=== PATIENT | male | born 1955 | race Caucasian/White ===

== ENCOUNTER 2017-04-15 08:00 | Outpatient (CLI) | payer MEDICAID | END 2017-04-15 23:59 | disposition home or self-care (01) | LOC: D.MRI 08:00 | DX: M54.16 Radiculopathy, lumbar region (principal) ==

== ENCOUNTER → 2017-08-09 09:13 | Outpatient (CLI) | payer MEDICAID | END | disposition home or self-care (01) | LOC: D.US 09:00 | DX: R22.2 Localized swelling, mass and lump, trunk (principal) ==

== ENCOUNTER → 2017-08-20 08:44 | Day surgery (SDC) | payer BC ==
[~2017-08-20 08:44] MED LIST: HYDROCODONE-APA1 TAB PO; OMEPRAZOLE CAP 20M; OXYCONTIN40 MG PO; SYNTHROID25 MCG PO
== END | disposition home or self-care (01) ==
LOC: D.OPS 08:00 → D.PAN 10:30
DX: R59.9 Enlarged lymph nodes, unspecified (principal); F17.200 Nicotine dependence, unspecified, uncomplicated; Z53.9 Procedure and treatment not carried out, unspecified reason

== ENCOUNTER 2017-08-26 06:23 | Day surgery (SDC) | payer BC ==
[~2017-08-26] VITALS: Ht 160 cm; Wt 73.0 kg
--- NOTE | ~2017-08-26 | HP ---
PATIENT: ARVIND PACE MEDICAL RECORD: [id number] ACCOUNT: [id number] [facility]ATION:[facility] : 51 ADMISSION DATE: 08/26/17 HISTORY AND PHYSICAL EXAMINATION HISTORY OF PRESENT ILLNESS: He presents with lymphadenopathy. He has enlarged lymph nodes in both groins. Also, the left neck. I elected to biopsy what appears to be the largest lymph node and that is in the left groin. The risks, possible complications, and alternatives to the procedure were discussed with the patient. He elects to proceed. The discussion specifically included, but was not limited to, bleeding requiring emergency reoperation, infection, permanent incapacitating swelling of an extremity as well as a lymphocele. TRANSINT:[id number] Voice Confirmation ID: [id number] DOCUMENT ID: [id number] ARVIND GARVEY MD at 1019 CC: [id number] DICTATION DATE: 08/26/17 0849 DEVELOPMENTAL THERAPIST: 08/26/17 1151 [facility] 08/26/17 [place] [id number] [place] [address]
--- NOTE | ~2017-08-26 | OP ---
PATIENT NAME: YOSSI PACE MEDICAL RECORD: [id number] :51 LOCATION:D[facility] ADMISSION DATE: SURGEON: YOSSI GARVEY MD DATE OF OPERATION: 08/26/2017 PREOPERATIVE DIAGNOSIS: Lymphadenopathy. POSTOPERATIVE DIAGNOSIS: Lymphadenopathy, pathology is pending. PROCEDURE: Excisional lymph node biopsy of the left groin. SURGEON: Yossi Garvey MD ASSEMBLER BONDING: None. BLOOD LOSS: Minimal. ANESTHESIA: General. COMPLICATIONS: None. The risks, possible complications, and alternatives to the procedure were explained to the patient. He elects to proceed. DESCRIPTION OF PROCEDURE: I saw him in the holding area. The left groin was marked. The patient was conveyed to the operating room. General anesthesia was induced by the anesthesia staff. An incision was accomplished in the left groin crease. I dissected down to a large lymph node. I dissected the lymph node out with the Harmonic scalpel. There was no bleeding. The lymph node was sent as a single specimen. The deep adipose tissue was closed with interrupted 3-0 Vicryls. The subcutaneous adipose tissue was closed with interrupted 3-0 Vicryls. The skin was closed with multiple interrupted horizontal mattress 3-0 Vicryl Rapide and then Dermabond. Marcaine was then instilled into the surrounding tissues for postoperative analgesia. The patient was then extubated and conveyed to the post-anesthesia care unit where he was in stable condition. He had no paresthesias or numbness involving the left lower extremity and good function in the left lower extremity as well. TRANSINT:[id number] Voice Confirmation ID: [id number] DOCUMENT ID: [id number] YOSSI GARVEY MD at 1019 CC: ALTHEA MADERA [id number] DICTATION DATE: 08/26/17 0851 WORKERS COMPENSATION CLAIMS SPECIALIST: 08/26/17 0959 [facility] 08/26/17 [place] [id number]
[2017-08-26] MEDS ORDERED: VIBRAMYCIN 100100 MG (06:52)
[2017-08-26 06:53] VITALS: BP 137/76; Ht 160 cm; Wt 73.0 kg
[2017-08-27 20:09] LABS: ACID FAST SMEAR Negative (()); AFB SPECIMEN PROCESSING Tissue Grinding (())
== END 2017-08-26 10:32 | disposition home or self-care (01) ==
LOC: D.OPS 06:23 → D.PAN 08:00 → D.OPS 08:00
PROVIDERS: Surgery
DX: R59.1 Generalized enlarged lymph nodes (principal); K21.9 Gastro-esophageal reflux disease without esophagitis; Z01.812 Encounter for preprocedural laboratory examination

== ENCOUNTER → 2018-03-21 09:13 | Outpatient (CLI) | payer MEDICAID ==
[2017-08-26 06:53] VITALS: BMI 28.5
[~2018-03-21 09:13] MED LIST changes: +VIBRAMYCIN 100100 MG
== END | disposition home or self-care (01) ==
LOC: D.CT 09:00
DX: C83.50 Lymphoblastic (diffuse) lymphoma, unspecified site (principal)